=== PATIENT | female | born 1970 | race Caucasian/White ===

== ENCOUNTER 2018-06-28 14:32 | Emergency (ER) | payer MEDICAID ==
[2018-06-28 14:54] VITALS: BP 144/87
[2018-06-28 15:23] LABS: BILIRUBIN,URINE NEGATIVE (NEGATIVE); GLUCOSE, URINE (UA) NEGATIVE (NEGATIVE); KETONES,URINE (UA) NEGATIVE (NEGATIVE); LEUKOCYTE ESTERASE, URINE NEGATIVE (NEGATIVE); NITRITE,URINE NEGATIVE (NEGATIVE); OCCULT BLOOD,URINE SMALL (NEGATIVE); PROTEIN,URINE NEGATIVE (NEGATIVE); UROBILINOGEN,URINE 0.2 (NORMAL) E.U./dL (NORMAL)
[2018-06-28 15:24] LABS: CLARITY,URINE CLEAR (CLEAR)
[2018-06-28 15:31] LABS: BACTERIA,URINE Rare /HPF (None Seen); RBC,URINE 0-5 /HPF (0-5); SQUAMOUS EPITHELIAL CELL,UR FEW Squamous (<= Few)
[2018-06-28] MEDS ORDERED: SULFAMETH/TRIMETH DS 800/160 MG TABLET PO STA (15:58)
--- NOTE | 2018-06-28 16:00 | ED Physician Documentation ---
PD HPI FEMALE - Stated complaint Stated Complaint: FEM /BACK PX - Chief complaint Chief Complaint: UTI - History obtained from History obtained from: Patient - History of Present Illness Timing - onset: Other (2 days of foul-smelling urine, urethral burning with urination and frequency with mild left flank pain. She is nauseous but is always nauseous because of a chronic issue, really unchanged.) Review of Systems Constitutional: denies: Fever, Chills GI: denies: Abdominal Pain, Nausea, Vomiting : reports: Dysuria, Frequency PD PAST MEDICAL HISTORY - Past Medical History Cardiovascular: Hypertension Respiratory: COPD GI: Cholelithiasis : Kidney stones Musculoskeletal: Fibromyalgia - Past Surgical History Past Surgical History: Yes Ortho: Carpal Tunnel surgery /B[employer]ER [employer] TACKER: Hysterectomy, Oophrectomy, Mastectomy HEENT: Tonsil/Adenoidectomy - Present Medications Home Medications: Ambulatory Orders Medication Instructions Recorded Confirmed Albuterol [Ventolin Hfa] 2 puffs INH Q6H 11/01/13 05/20/17 Diphenhydramine HCl [Benadryl] 25 mg PO DAILY 05/17/15 05/20/17 Fluticasone [Flonase] 1 spray INH DAILY 05/17/15 05/20/17 Ibuprofen 400 mg PO DAILY 05/17/15 05/20/17 Omeprazole [PriLOSEC] 20 mg PO DAILY 05/17/15 05/20/17 traMADol [Ultram] 50 mg PO DAILY 05/17/15 05/20/17 Albuterol Sulfate [Proair Hfa 8.5 gm IH QID #1 hfa.aer.ad 08/28/15 05/20/17 Inhaler] Ipratropium [Atrovent] 1 puffs PO DAILY 05/20/17 05/20/17 prednisoLONE 1% OPHTH DROPS [Pred 1 drops OPTH QID #1 bottle 05/20/17 Forte 1% Ophth Drops] Ondansetron Odt [Zofran] 4 mg TL Q6H PRN #10 tablet 06/28/18 Sulfamethoxazole/Trimethoprim 1 each PO BID #14 tablet 06/28/18 [Sulfamethoxazole-Tmp Ds Tablet] - Allergies Allergies/Adverse Reactions: Allergies Allergy/AdvReac Type Severity Reaction Status Date / Time acetaminophen [From Percocet] Allergy Intermediate Edema Verified 06/28/18 14:54 bupropion HCl * Allergy Intermediate Respiratory Verified 06/28/18 14:54 [From Wellbutrin] codeine phosphate * Allergy Intermediate Emesis Verified 06/28/18 14:54 [From Tylenol-Codeine #3] duloxetine HCl * Allergy Intermediate Hives Verified 06/28/18 14:54 [From Cymbalta] hydrocodone bitartrate * Allergy Intermediate Edema Verified 06/28/18 14:54 [From Vicodin] oxycodone HCl * Allergy Intermediate Edema Verified 06/28/18 14:54 [From Percocet] aripiprazole [From Abilify] Allergy Unknown Verified 06/28/18 14:54 - Social History Does the pt smoke?: No Smoking Status: Never smoker Does the pt drink ETOH?: No Does the pt have substance abuse?: No - Immunizations Immunizations are current?: Yes - POLST Patient has POLST: No PD ED PE NORMAL - Vitals Vital signs reviewed: Yes - General General: Alert and oriented X 3, No acute distress - Abdomen Abdomen: Normal bowel sounds, Soft, Non tender - Back Back: No CVA TTP - Neuro Neuro: Alert and oriented X 3, Normal speech Results - Vitals Vitals: Vital Signs - 24 hr 06/28/18 14:48 Temperature 36.4 C L Heart Rate 85 Respiratory 20 Rate Blood Pressure 144/87 H O2 Saturation 96 Oxygen O2 Source Room air - Labs Labs: Laboratory Tests 06/28/18 14:55 Urine Color YELLOW Urine Clarity CLEAR Urine pH 7.0 Ur Specific [place] <=1.005 Urine Protein NEGATIVE Urine Glucose (UA) NEGATIVE Urine Ketones NEGATIVE Urine Occult Blood SMALL H Urine Nitrite NEGATIVE Urine Bilirubin NEGATIVE Urine Urobilinogen 0.2 (NORMAL) Ur Leukocyte Esterase NEGATIVE Urine RBC 0-5 Urine WBC 0-3 Ur Squamous Epith Cells FEW Squamous Urine Bacteria Rare Ur Microscopic Review INDICATED Urine Culture Comments NOT INDICATED PD MEDICAL DECISION MAKING - ED course ED course: She has a really unremarkable urine with trace blood, but it is pretty dilute and her symptoms point directly to UTI. Departure - Departure Disposition: 01 Home, Self Care Clinical Impression: Urinary tract infection Qualifiers: Urinary tract infection type: acute pyelonephritis Qualified Code(s): N10 - Acute pyelonephritis Condition: Good Record reviewed to determine appropriate education?: Yes Instructions: ED UTI Cystitis Female Prescriptions: Ondansetron Odt [Zofran] 4 mg TL Q6H PRN #10 tablet PRN Reason: Nausea / Vomiting Sulfamethoxazole/Trimethoprim [Sulfamethoxazole-Tmp Ds Tablet] 1 each PO BID #14 tablet Comments: Your blood pressure was elevated today on check into the emergency department. This does not mean that you have hypertension, it is a common phenomenon to come to the emergency department and have elevated blood pressure. I recommend that you see your primary care physician within the week to have it rechecked when you are feeling better.
== END 2018-06-28 16:05 | disposition home or self-care (01) ==
LOC: ED 14:32
DX: N10 Acute pyelonephritis (principal); I10 Essential (primary) hypertension; M79.7 Fibromyalgia
CPT/HCPCS: 81001; 99283; A9270; 81003; 87086

== ENCOUNTER 2019-05-08 14:21 | Outpatient (CLI) | payer MEDICARE, MEDICAID | END 2019-05-08 14:22 | disposition critical access hospital (66) | LOC: EMS 14:21 | PROVIDERS: ATTEND Surgery | DX: R07.89 Other chest pain (principal) | CPT/HCPCS: A0425; A0427 ==

== ENCOUNTER 2019-05-08 15:30 | Emergency (ER) | payer MEDICARE, MEDICAID ==
[2019-05-08] MEDS ORDERED: KETOROLAC 30 MG/ML VIAL IVP STA (15:40)
[2019-05-08] MEDS ORDERED: HYDROmorphone 1 MG/ML CARPUJECT IVP STA (15:40)
--- NOTE | 2019-05-08 15:42 | ED Physician Documentation ---
PD HPI CHEST PAIN - Stated complaint Stated Complaint: CP - History obtained from History obtained from: Patient, EMS - History of Present Illness Timing - onset: Today (48-year-old woman with history of migraines had a headache for a couple of days. Yesterday she was sweaty. Today she started to develop substernal chest pressure radiating to the neck but not the back starting around 1030 this morning. She continues to be sweaty. She denies shortness of breath but has an odd feeling in her lungs like she cannot take a deep breath. There is no recent travel or calf pain. No history of DVT or PE or heart disease, but heart disease runs in the family. Risk factors include obesity, and she quit smoking at age 31.) - Treatment prior to arrival Treatment prior to arrival: She received aspirin and nitroglycerin in route, it did not help the chest pain but the nitroglycerin made her headache worse. Prehospital EKG was reviewed and it was completely nonischemic. Review of Systems Ten Systems: 10 systems reviewed and negative Constitutional: denies: Fever, Chills Throat: denies: Dental pain / toothache Cardiac: denies: Palpitations, Pedal edema, Calf pain Respiratory: reports: Cough (v mild). 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 HEENT: Tonsil/Adenoidectomy - Present Medications Home Medications: Ambulatory Orders Medication Instructions Recorded Confirmed Albuterol [Ventolin Hfa] 2 puffs INH Q6H 11/01/13 05/20/17 Diphenhydramine HCl [Benadryl] 25 mg PO DAILY 05/17/15 05/20/17 Fluticasone [Flonase] 1 spray INH DAILY 05/17/15 05/20/17 Ibuprofen 400 mg PO DAILY 05/17/15 05/20/17 Omeprazole [PriLOSEC] 20 mg PO DAILY 05/17/15 05/20/17 traMADol [Ultram] 50 mg PO DAILY 05/17/15 05/20/17 Albuterol Sulfate [Proair Hfa 8.5 gm IH QID #1 hfa.aer.ad 08/28/15 05/20/17 Inhaler] Ipratropium [Atrovent] 1 puffs PO DAILY 05/20/17 05/20/17 prednisoLONE 1% OPHTH DROPS [Pred 1 drops OPTH QID #1 bottle 05/20/17 Forte 1% Ophth Drops] Ondansetron Odt [Zofran] 4 mg TL Q6H PRN #10 tablet 06/28/18 Sulfamethoxazole/Trimethoprim 1 each PO BID #14 tablet 06/28/18 [Sulfamethoxazole-Tmp Ds Tablet] - Allergies Allergies/Adverse Reactions: Allergies Allergy/AdvReac Type Severity Reaction Status Date / Time acetaminophen [From Percocet] Allergy Intermediate Edema Verified 05/08/19 15:42 bupropion HCl * Allergy Intermediate Respiratory Verified 05/08/19 15:42 [From Wellbutrin] codeine phosphate * Allergy Intermediate Emesis Verified 05/08/19 15:42 [From Tylenol-Codeine #3] duloxetine HCl * Allergy Intermediate Hives Verified 05/08/19 15:42 [From Cymbalta] hydrocodone bitartrate * Allergy Intermediate Edema Verified 05/08/19 15:42 [From Vicodin] oxycodone HCl * Allergy Intermediate Edema Verified 05/08/19 15:42 [From Percocet] aripiprazole [From Abilify] Allergy Unknown Verified 05/08/19 15:42 - Social History Does the pt smoke?: No Smoking Status: Never smoker Does the pt drink ETOH?: No Does the pt have substance abuse?: No - Immunizations Immunizations are current?: Yes - POLST Patient has POLST: No PD ED PE NORMAL - Vitals Vital signs reviewed: Yes - General General: Alert and oriented X 3, No acute distress - HEENT HEENT: PERRL, EOMI - Neck Neck: Supple, no meningeal sign, No bony TTP - Cardiac Cardiac: RRR, No murmur - Respiratory Respiratory: No respiratory distress, Clear bilaterally - Abdomen Abdomen: Soft, Non tender - Back Back: No CVA TTP, No spinal TTP - Derm Derm: Normal color, Warm and dry - Extremities Extremities: No edema, No calf tenderness / cord - Neuro Neuro: Alert and oriented X 3, Normal speech Results - Vitals Vitals: Vital Signs - 24 hr 05/08/19 05/08/19 05/08/19 15:33 16:13 16:59 Temperature 36.5 C Heart Rate 78 80 76 Respiratory 20 18 16 Rate Blood Pressure 130/96 H 116/81 H 104/73 O2 Saturation 100 99 97 05/08/19 18:40 Temperature Heart Rate 77 Respiratory 19 Rate Blood Pressure 130/90 H O2 Saturation 100 Oxygen O2 Source Room air - EKG (time done) 1537 Rate: Rate (enter#) (75) Rhythm: NSR [place]: Normal Intervals: Normal [place] QRS: Normal Ischemia: Normal ST segments Computer interpretation: Agree with computer - Labs Labs: Laboratory Tests 05/08/19 05/08/19 05/08/19 15:48 15:48 15:48 WBC 6.9 RBC 4.42 Hgb 13.6 Hct 40.9 MCV 92.5 MCH 30.8 MCHC 33.3 RDW 12.4 Plt Count 231 MPV 10.2 Neut # (Auto) 4.0 Lymph # (Auto) 2.1 [place] # (Auto) 0.5 Eos # (Auto) 0.2 Baso # (Auto) 0.0 Absolute Nucleated RBC 0.00 Nucleated RBC % 0.0 Sodium 140 Potassium 3.6 Chloride 104 Carbon Dioxide 29 Anion Gap 7.0 BUN 18 Creatinine 0.9 Estimated GFR (MDRD) 66 L Glucose 105 H Calcium 9.0 Total Bilirubin 0.6 AST 14 ALT 17 Alkaline Phosphatase 68 Troponin I High Sens < 2.3 L Total Protein 6.5 L Albumin 4.0 Globulin 2.5 Albumin/Globulin Ratio 1.6 Lipase 32 05/08/19 18:36 WBC RBC Hgb Hct MCV MCH MCHC RDW Plt Count MPV Neut # (Auto) Lymph # (Auto) [place] # (Auto) Eos # (Auto) Baso # (Auto) Absolute Nucleated RBC Nucleated RBC % Sodium Potassium Chloride Carbon Dioxide Anion Gap BUN Creatinine Estimated GFR (MDRD) Glucose Calcium Total Bilirubin AST ALT Alkaline Phosphatase Troponin I High Sens < 2.3 L Total Protein Albumin Globulin Albumin/Globulin Ratio Lipase PD MEDICAL DECISION MAKING - ED course ED course: 48-year-old woman presents with atypical chest pain, headache, exam is unrema rkable. Her EKG is completely nonischemic. 2 troponins were done the department and both negative and undetectable. Departure - Departure Disposition: 01 Home, Self Care Clinical Impression: Chest pain Qualifiers: Chest pain type: unspecified Qualified Code(s): R07.9 - Chest pain, unspecified Condition: Good Record reviewed to determine appropriate education?: Yes Instructions: ED Chest Pain Atypical Unkn Cause Comments: Follow-up with your doctor, next available appointment. Discuss stress testing. Return for new or worsening symptoms. Take a baby aspirin a day until you follow-up.
[2019-05-08 15:52] LABS: BASOPHILS % (AUTO) 0.6 %; EOSINOPHILS # (AUTO) 0.2 10^3/uL (0.0-0.7); EOSINOPHILS % (AUTO) 3.4 %; HGB - HEMOGLOBIN 13.6 g/dL (12.0-16.0); LYMPHOCYTES # (AUTO) 2.1 10^3/uL (1.5-3.5); LYMPHOCYTES % (AUTO) 30.8 %; MEAN CORPUSCULAR HEMOGLOBIN 30.8 pg (27.0-31.0); MEAN CORPUSCULAR HGB CONC 33.3 g/dL (32.0-36.0); MEAN CORPUSCULAR VOLUME 92.5 fL (81.0-99.0); MEAN PLATELET VOLUME 10.2 fL (7.9-10.8); MONOCYTES # (AUTO) 0.5 10^3/uL (0.0-1.0); MONOCYTES % (AUTO) 7.1 %; NEUTROPHILS % (AUTO) 57.7 %; PLT - PLATELET COUNT 231 10^3/uL (130-450); RED BLOOD COUNT 4.42 10^6/uL (4.20-5.40); RED CELL DISTRIBUTION WIDTH 12.4 % (12.0-15.0); WHITE BLOOD COUNT 6.9 x10^3/uL (4.8-10.8)
[2019-05-08 16:04] LABS: ALBUMIN/GLOBULIN RATIO 1.6 (1.0-2.2); BILIRUBIN,TOTAL 0.6 mg/dL (0.2-1.0); CREATININE 0.9 mg/dL (0.4-1.0); TOTAL PROTEIN 6.5 g/dL (6.7-8.2)
--- NOTE | 2019-05-08 16:18 | XRAY Report ---
Reason: chest pain Procedure Date: 05/08/2019 Accession Number: [id number] / [id number] Procedure: XR - Chest 1 View X-Ray CPT Code: 65352 FULL RESULT: EXAM: CHEST RADIOGRAPHY EXAM DATE: 05/08/2019 03:54 PM. CLINICAL HISTORY: Chest pain. History of breast cancer. COMPARISON: CHEST 2 VIEW PA/LAT 05/17/2015 2:48 PM. TECHNIQUE: 1 view. FINDINGS: Lungs/Pleura: No focal opacities evident. No pleural effusion. No pneumothorax. Mediastinum: Heart size and mediastinal contour are within normal limits. Other: None. IMPRESSION: 1. No acute disease in the chest. RADIA
[2019-05-08 19:17] VITALS: BP 128/75
== END 2019-05-08 19:17 | disposition home or self-care (01) ==
LOC: EDUNIT# → ED 15:30
DX: R07.89 Other chest pain (principal); R51 Headache; M54.2 Cervicalgia; R61 Generalized hyperhidrosis; I10 Essential (primary) hypertension; E66.9 Obesity, unspecified; Z87.891 Personal history of nicotine dependence; Z82.49 Family history of ischemic heart disease and other diseases of the circulatory system
CPT/HCPCS: 36415; 71045; 80053; 83690; 84484; 85025; 93005; 96374; 99284; J1170

== ENCOUNTER 2020-10-23 15:08 | Emergency (ER) | payer MEDICARE, MEDICAID ==
--- OUTSIDE RECORDS SUMMARY | 2020-10-23 15:35 | EXTERNAL MEDICAL SUMMARY RPT | Continuity of Care Document ---
:1970 Demographics Phone Unavailable Preferred Language Unknown Marital Status Unknown Rastafari Affiliation Unknown Race Unknown Ethnic Group Unknown Author Organization [facility] Address [address] [phone] Phone Social History date description facility [id number]
--- NOTE | 2020-10-23 15:51 | XRAY Report ---
PROCEDURE: Chest 2 View X-Ray INDICATIONS: cough TECHNIQUE: 2 view(s) of the chest. COMPARISON: 05/08/2019, 05/17/2015 FINDINGS: Surgical changes and devices: None. Lungs and pleura: No pleural effusions or pneumothorax. Lungs are clear, yet mildly hyperexpanded. Mediastinum: Mediastinal contours are normal. Heart size is normal. Bones and chest wall: Age-appropriate degenerative changes are seen. No suspicious bony abnormalit ies. Soft tissues appear unremarkable. IMPRESSION: Hyperexpanded lungs are seen, without an acute cardiopulmonary abnormality seen. No focal infiltrates are seen. Reviewed by: Nabeel Whipple MD on 10/23/2020 2:50 PM [facility] Approved by: Nabeel Whipple MD on 10/23/2020 2:50 PM [facility] Station ID: [id number]
[2020-10-23] MEDS ORDERED: IPRATROPIUM/ALBUTEROL 3 ML NEB INH STA (15:55)
[2020-10-23] MEDS ORDERED: PSEUDOEPHEDRINE 30 MG TABLET PO STA (15:55)
[2020-10-23] MEDS ORDERED: predniSONE 20 MG TABLET PO STA (15:55)
--- NOTE | 2020-10-23 16:23 | ED Physician Documentation ---
History of Present Illness - Stated complaint Stated Complaint: COUGHING,FEVER,SINUS PRESSURE - Chief complaint Chief Complaint: Resp - History obtained from History obtained from: Patient - History of Present Illness Timing: How many weeks ago (1) Pain level max: 0 Pain level now: 0 - Additonal information Additional information: Is a 50-year-old female who presents to the emergency department with cough and congestion for the past week. She states that she saw her doctor and had pneumonia on chest x-ray. She states that she was placed on azithromycin, completed this and is about to finish her Augmentin course. She states she is still having difficulty breathing and coughing up yellow phlegm. No fevers. No chills. Negative Covid test 5 days ago. She continues to smoke. Has a history of COPD. Continues to have wheezing, especially at night. Was not placed on a steroid taper. Currently uses a Symbicort inhaler and uses albuterol up to 4 times a day. Does not use a spacer. Review of Systems Constitutional: denies: Fever, Chills Nose: reports: Rhinorrhea / runny nose, Congestion, Sinus pressure / pain Throat: denies: Sore throat Cardiac: denies: Chest pain / pressure Respiratory: reports: Dyspnea, Cough, Wheezing. 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 HEENT: Tonsil/Adenoidectomy - Present Medications Home Medications: Ambulatory Orders Medication Instructions Recorded Confirmed Albuterol [Ventolin Hfa] 2 puffs INH Q6H 11/01/13 10/23/20 Ibuprofen 400 mg PO DAILY PRN 05/17/15 10/23/20 Omeprazole [PriLOSEC] 20 mg PO DAILY 05/17/15 10/23/20 diphenhydrAMINE HCl [Benadryl] 25 mg PO DAILY PRN 05/17/15 10/23/20 traMADol [Ultram] 50 mg PO DAILY 05/17/15 10/23/20 Ipratropium [Atrovent] 1 puffs PO DAILY 05/20/17 10/23/20 Ondansetron Odt [Zofran] 4 mg TL Q6H PRN #10 tablet 06/28/18 10/23/20 Sulfamethoxazole/Trimethoprim 1 each PO BID #14 tablet 06/28/18 10/23/20 [Sulfamethoxazole-Tmp Ds Tablet] Cetirizine HCl/Pseudoephedrine 1 each PO BID PRN #30 ea 10/23/20 [Zyrtec-D Tablet] predniSONE [Deltasone] 10 mg PO [id number] #42 tab 10/23/20 - Allergies Allergies/Adverse Reactions: Allergies Allergy/AdvReac Type Severity Reaction Status Date / Time acetaminophen [From Percocet] Allergy Intermediate Edema Verified 10/23/20 15:14 bupropion HCl * Allergy Intermediate Respiratory Verified 10/23/20 15:14 [From Wellbutrin] codeine phosphate * Allergy Intermediate Emesis Verified 10/23/20 15:14 [From Tylenol-Codeine #3] duloxetine HCl * Allergy Intermediate Hives Verified 10/23/20 15:14 [From Cymbalta] hydrocodone bitartrate * Allergy Intermediate Edema Verified 10/23/20 15:14 [From Vicodin] oxycodone HCl * Allergy Intermediate Edema Verified 10/23/20 15:14 [From Percocet] aripiprazole [From Abilify] Allergy Unknown Verified 10/23/20 15:14 - Social History Does the pt smoke?: No Smoking Status: Former smoker Does the pt drink ETOH?: No Does the pt have substance abuse?: No - Immunizations Immunizations are current?: Yes - POLST Patient has POLST: No PD ED PE NORMAL - Vitals Vital signs reviewed: Yes - General General: Alert and oriented X 3, No acute distress, Well developed/nourished - HEENT HEENT: PERRL, Moist mucous membranes - Neck Neck: Supple, no meningeal sign - Cardiac Cardiac: RRR - Respiratory Respiratory: No respiratory distress, Other (Diminished breath sounds and wheezing bilaterally. Prolonged expiratory wheeze) - Abdomen Abdomen: Soft, Non tender, Non distended - Derm Derm: Warm and dry - Extremities Extremities: No edema - Neuro Neuro: Alert and oriented X 3 - Psych Psych: Normal mood, Normal affect Results - Vitals Vitals: Vital Signs - 24 hr 10/23/20 10/23/20 10/23/20 15:15 16:12 16:34 Temperature 37.1 C 36.5 C Heart Rate 80 82 88 Respiratory 20 20 20 Rate Blood Pressure 159/79 H 158/96 H O2 Saturation 97 96 Oxygen O2 Source Room air - Rads (name of study) Chest x-ray Radiology: Prelim report reviewed, EMP read contemporaneously, See rad report (Hyperexpanded lungs are seen, without an acute cardiopulmonary abnormality seen. No focal infiltrates are seen. ) PD MEDICAL DECISION MAKING - ED course Complexity details: reviewed results, re-evaluated patient, considered differential, d/w patient ED course: 50-year-old female with what appears to be a COPD exacerbation. No evidence of recurrent or ongoing pneumonia. We will have her finish her Augmentin. Will place on a steroid taper for home. We will also place on decongestants. Patient is well-appearing, nontoxic. Afebrile. No hypoxia or respiratory distress. Patient counseled regarding signs and symptoms for which I believe and urgent re-evaluation would be necessary. Patient with good understanding of and agreement to plan and is comfortable going home at this time This document was made in part using voice recognition software. While efforts are made to proofread this document, sound alike and grammatical errors may occur. Departure - Departure Disposition: 01 Home, Self Care Clinical Impression: COPD exacerbation Condition: Good Instructions: ED COPD Flare Follow-Up: LISA PEREZ MD [Primary Care Provider] - Within 1 week Prescriptions: predniSONE [Deltasone] 10 mg PO [id number] #42 tab Cetirizine HCl/Pseudoephedrine [Zyrtec-D Tablet] 1 each PO BID PRN #30 ea PRN Reason: nasal congestion Comments: Please finish the Augmentin as previously prescribed. Your x-ray does not show any evidence of pneumonia today. We will place you on a steroid taper and decongestants for home. Follow-up with your doctor for further care. Continue to use the albuterol with a spacer at least 4 times a day.
[2020-10-23 16:35] VITALS: BP 158/96
== END 2020-10-23 16:42 | disposition home or self-care (01) ==
LOC: ED 15:08
DX: J44.1 Chronic obstructive pulmonary disease with (acute) exacerbation (principal); F17.200 Nicotine dependence, unspecified, uncomplicated; I10 Essential (primary) hypertension; E11.42 Type 2 diabetes mellitus with diabetic polyneuropathy
CPT/HCPCS: 71046; 94640; 94664; 99283; 99284; A9270; J7512

== ENCOUNTER 2020-11-23 15:09 | Outpatient (CLI) | payer MEDICARE, MEDICAID ==
--- NOTE | 2020-11-23 16:58 | XRAY Report ---
PROCEDURE: Chest 2 View X-Ray INDICATIONS: PERSISTENT ASTHMA W/ACUTE EXACERBATION TECHNIQUE: 2 view(s) of the chest. COMPARISON: Chest x-ray 10/23/2020. FINDINGS: Surgical changes and devices: None. Lungs and pleura: No pleural effusions or pneumothorax. Lungs are clear. Mediastinum: Mediastinal contours are normal. Heart size is normal. Bones and chest wall: No suspicious bony abnormalities. Soft tissues appear unremarkable. IMPRESSION: No acute pulmonary process. Reviewed by: Shabana Valladares MD on 11/23/2020 4:57 PM PDT Approved by: Shabana Valladares MD on 11/23/2020 4:57 PM PDT Station ID: [id number]
== END 2020-11-23 15:10 | disposition home or self-care (01) ==
LOC: DI.S 15:09
PROVIDERS: ATTEND Internal Medicine
DX: Z09 Encounter for follow-up examination after completed treatment for conditions other than malignant neoplasm (principal); Z87.01 Personal history of pneumonia (recurrent); J45.41 Moderate persistent asthma with (acute) exacerbation

== ENCOUNTER 2021-07-01 15:00 | Outpatient (CLI) | payer MEDICARE, MEDICAID ==
[2021-07-01 22:21] LABS: BILIRUBIN,URINE NEGATIVE (NEGATIVE); GLUCOSE, URINE (UA) NEGATIVE (NEGATIVE); KETONES,URINE (UA) NEGATIVE (NEGATIVE); LEUKOCYTE ESTERASE, URINE NEGATIVE (NEGATIVE); NITRITE,URINE NEGATIVE (NEGATIVE); OCCULT BLOOD,URINE MODERATE (NEGATIVE); PH,URINE 6.5 PH (5.0-7.5); PROTEIN,URINE NEGATIVE (NEGATIVE); UROBILINOGEN,URINE 0.2 (NORMAL) E.U./dL (NORMAL)
[2021-07-01 22:28] LABS: BACTERIA,URINE None Seen /HPF (None Seen); CLARITY,URINE CLEAR (CLEAR); SQUAMOUS EPITHELIAL CELL,UR RARE Squamous (<= Few); WBC,URINE 0-3 /HPF (0-5)
[2021-07-01 23:04] LABS: BACTERIAL VAGINOSIS DNA POSITIVE (NEGATIVE); CANDIDA GLABRATA DNA NEGATIVE (NEGATIVE); CANDIDA GROUP DNA NEGATIVE (NEGATIVE); CANDIDA KRUSEI DNA NEGATIVE (NEGATIVE); TRICHOMONAS VAGINALIS DNA NEGATIVE (NEGATIVE)
== END 2021-07-01 23:59 | disposition home or self-care (01) ==
LOC: LAB.S 15:00
PROVIDERS: ATTEND Emergency Medicine
DX: R30.0 Dysuria (principal)
CPT/HCPCS: 81001; 87086; 87661; 87801

== ENCOUNTER 2021-11-03 08:00 | Outpatient (CLI) | payer MEDICARE, MEDICAID ==
[2021-11-03 16:15] LABS: THYROID STIMULATING HORMONE 1.11 uIU/mL (0.34-5.60)
== END 2021-11-03 23:59 | disposition home or self-care (01) ==
LOC: LAB.S 08:00
PROVIDERS: ATTEND Registered Nurse
DX: R07.89 Other chest pain (principal)
CPT/HCPCS: 36415; 84443; 84484

== ENCOUNTER 2022-12-21 10:12 | Outpatient (CLI) | payer MEDICARE, MEDICAID ==
[2022-12-21 14:42] LABS: BASOPHILS # (AUTO) 0.1 10^3/uL (0.0-0.1); BASOPHILS % (AUTO) 0.7 %; EOSINOPHILS # (AUTO) 0.3 10^3/uL (0.0-0.7); EOSINOPHILS % (AUTO) 4.5 %; HCT - HEMATOCRIT 43.8 % (37.0-47.0); HGB - HEMOGLOBIN 14.3 g/dL (12.0-16.0); LYMPHOCYTES # (AUTO) 1.9 10^3/uL (1.5-3.5); LYMPHOCYTES % (AUTO) 28.1 %; MEAN CORPUSCULAR HEMOGLOBIN 30.2 pg (27.0-31.0); MEAN CORPUSCULAR HGB CONC 32.6 g/dL (32.0-36.0); MEAN CORPUSCULAR VOLUME 92.6 fL (81.0-99.0); MEAN PLATELET VOLUME 10.4 fL (7.9-10.8); MONOCYTES # (AUTO) 0.6 10^3/uL (0.0-1.0); MONOCYTES % (AUTO) 9.3 %; NEUTROPHILS % (AUTO) 57.1 %; PLT - PLATELET COUNT 264 10^3/uL (130-450); RED BLOOD COUNT 4.73 10^6/uL (4.20-5.40); RED CELL DISTRIBUTION WIDTH 12.9 % (12.0-15.0); WHITE BLOOD COUNT 6.9 x10^3/uL (4.8-10.8)
[2022-12-21 15:11] LABS: THYROID STIMULATING HORMONE 1.34 uIU/mL (0.34-5.60)
[2022-12-21 15:13] LABS: ALBUMIN/GLOBULIN RATIO 1.3 (1.0-2.2); BILIRUBIN,TOTAL 0.5 mg/dL (0.2-1.0); CALCIUM 9.5 mg/dL (8.5-10.3); CREATININE 0.9 mg/dL (0.4-1.0); POTASSIUM 4.1 mmol/L (3.5-5.0)
[2022-12-21 15:15] LABS: FERRITIN 39.7 ng/mL (11.0-306.8)
== END 2022-12-21 10:13 | disposition home or self-care (01) ==
LOC: LAB.S 10:12
PROVIDERS: ATTEND Internal Medicine
DX: R20.9 Unspecified disturbances of skin sensation (principal); R53.83 Other fatigue
CPT/HCPCS: 36415; 80053; 82728; 84443; 85025

== ENCOUNTER 2023-08-07 16:11 | Outpatient (CLI) | payer MEDICARE, MEDICAID ==
[2023-08-07 21:12] LABS: BASOPHILS # (AUTO) 0.1 10^3/uL (0.0-0.1); BASOPHILS % (AUTO) 0.7 %; EOSINOPHILS # (AUTO) 0.3 10^3/uL (0.0-0.7); HGB - HEMOGLOBIN 13.9 g/dL (12.0-16.0); LYMPHOCYTES # (AUTO) 2.9 10^3/uL (1.5-3.5); LYMPHOCYTES % (AUTO) 31.3 %; MEAN CORPUSCULAR HEMOGLOBIN 30.1 pg (27.0-31.0); MEAN CORPUSCULAR HGB CONC 32.3 g/dL (32.0-36.0); MEAN CORPUSCULAR VOLUME 93.1 fL (81.0-99.0); MEAN PLATELET VOLUME 10.8 fL (7.9-10.8); MONOCYTES # (AUTO) 0.8 10^3/uL (0.0-1.0); MONOCYTES % (AUTO) 8.5 %; NEUTROPHILS # (AUTO) 5.2 10^3/uL (1.5-6.6); NEUTROPHILS % (AUTO) 56.3 %; PLT - PLATELET COUNT 316 10^3/uL (130-450); RED BLOOD COUNT 4.62 10^6/uL (4.20-5.40); RED CELL DISTRIBUTION WIDTH 13.1 % (12.0-15.0); WHITE BLOOD COUNT 9.2 x10^3/uL (4.8-10.8)
[2023-08-07 21:33] LABS: ALBUMIN 4.1 g/dL (3.2-5.5); ALBUMIN/GLOBULIN RATIO 1.6 (1.0-2.2); BILIRUBIN,TOTAL 0.3 mg/dL (0.2-1.0); CALCIUM 9.6 mg/dL (8.5-10.3); CREATININE 0.8 mg/dL (0.6-1.3); POTASSIUM 3.8 mmol/L (3.5-4.5); TOTAL PROTEIN 6.7 g/dL (6.4-8.9)
== END 2023-08-07 16:12 | disposition home or self-care (01) ==
LOC: LAB.N 16:11
PROVIDERS: ATTEND Physician Assistant
DX: C50.811 Malignant neoplasm of overlapping sites of right female breast (principal); Z17.0 Estrogen receptor positive status [ER+]; Z79.811 Long term (current) use of aromatase inhibitors; M85.88 Other specified disorders of bone density and structure, other site
CPT/HCPCS: 36415; 80053; 85025; 86300

== ENCOUNTER 2023-08-13 07:00 | Outpatient (CLI) | payer MEDICARE, MEDICAID ==
--- NOTE | 2023-08-13 18:13 | XRAY Report ---
PROCEDURE: Chest 2V INDICATIONS: ACUTE COUGH TECHNIQUE: 2 views of the chest were acquired. COMPARISON: Chest x-ray 11/23/2020 FINDINGS: Surgical changes and devices: None. Lungs and pleura: No pleural effusions or pneumothorax. Lungs are clear. Mediastinum: Mediastinal contours appear normal. Heart size is normal. Bones and chest wall: No suspicious bony lesions. Overlying soft tissues appear unremarkable. IMPRESSION: No acute cardiopulmonary process. Reviewed by: Shabana Valladares MD on 08/13/2023 6:11 PM [facility] Approved by: Shabana Valladares MD on 08/13/2023 6:11 PM [facility] Station ID: [id number]
== END 2023-08-13 23:59 | disposition home or self-care (01) ==
LOC: DI.S 07:00
PROVIDERS: ATTEND Registered Nurse
DX: R06.09 Other forms of dyspnea (principal); R05.1 Acute cough

== ENCOUNTER 2023-08-23 12:50 | Outpatient (CLI) | payer MEDICARE, MEDICAID ==
--- NOTE | 2023-08-23 19:00 | CT Report ---
PROCEDURE: Sinus INDICATIONS: SINUSITIS TECHNIQUE: Noncontrast 3.0 mm axial images acquired from the frontal sinuses to the mid-sella, with coronal and sagittal reformats. For radiation dose reduction, the following was used: automated exposure control , adjustment of mA and/or kV according to patient size. COMPARISON: None. FINDINGS: Image quality: Excellent. Maxillary Sinuses: No bony remodeling or destruction. Sinuses are clear. Ethmoid Air Cells: No bony remodeling or destruction. Sinuses are clear. Sphenoid Sinuses: No bony remodeling or destruction. Sinuses are clear. Frontal Sinuses: No bony remodeling or destruction. Sinuses are clear. Ostiomeatal Complexes: Ostiomeatal complexes are patent. No Vicky cells. Miscellaneous: Visualized intra-orbital contents are normal. There is a small right-sided ben bu llosa. There is mild leftward nasal septal deviation. IMPRESSION: No significant active paranasal sinus disease can be seen. Reviewed by: Nabeel Whipple MD on 08/23/2023 5:59 PM [place] Approved by: Nabeel Whipple MD on 08/23/2023 5:59 PM [facility] Station ID: [id number]
== END 2023-08-23 12:51 | disposition home or self-care (01) ==
LOC: DI 12:50
PROVIDERS: ATTEND Physician Assistant Medical
DX: J32.9 Chronic sinusitis, unspecified (principal); R09.82 Postnasal drip

== ENCOUNTER 2023-11-09 08:00 | Outpatient (CLI) | payer MEDICARE, MEDICAID | END 2023-11-09 23:59 | disposition home or self-care (01) | LOC: LAB.WCP 08:00 | PROVIDERS: ATTEND Urology | DX: Z87.442 Personal history of urinary calculi (principal) | CPT/HCPCS: 87086 ==

== ENCOUNTER 2023-11-27 11:15 | Outpatient (CLI) | payer MEDICARE, MEDICAID ==
--- NOTE | 2023-11-27 14:47 | CT Report ---
PROCEDURE: Abdomen/Pelvis WO INDICATIONS: HIST OF KIDNEY STONES TECHNIQUE: A CT scan of the abdomen and pelvis was performed without the use of intravenous contrast. Images we re recorded and evaluated at appropriate window settings. Reformats: coronal and sagittal. For radiat ion dose reduction, the following was used: automated exposure control, adjustment of mA and/or kV ac cording to patient size. COMPARISON: 01/22/2015 FINDINGS: Image quality: Significantly limited due to presence of barium within the colon causing significant a rtifact Lower chest: Lung bases appear unremarkable. Normal heart size where visualized. Liver: Within the limits of noncontrast evaluation, no contour deforming mass. Solid organs are not well evaluated on noncontrast technique. Suspected cysts are present. Gallbladder and biliary system: Underdistended, unremarkable Pancreas: No discrete pancreatic mass or ductal dilation Spleen: Nonenlarged Adrenals: No discrete nodules Kidneys: Scattered probable cysts. Nonobstructing left renal calculi are again seen, the largest at t he lower pole measuring up to 4 mm. No hydronephrosis. Vessels and lymph nodes: No pathologic lymph nodes by size criteria. No abdominal aortic aneurysm. Bowel and peritoneum: No evidence of small bowel obstruction or pathologic ascites. Barium is seen in the colon and rectum. There is significant surrounding streak artifact. Appendix is nondilated. Body wall: Unremarkable Pelvis: Bladder is unremarkable. Uterus is not seen Bones: Degenerative changes, no acute or suspicious findings. IMPRESSION: Limited CT due to presence of barium within large bowel and rectum, causing significant streak and be am hardening artifact. Similar burden of kidney stones in the left sided calyces without hydronephrosis, the largest in the lower pole measuring up to 4 mm. Other findings above. Reviewed by: Kyle Millard MD on 11/27/2023 2:45 PM PDT Approved by: Kyle Millard MD on 11/27/2023 2:45 PM PDT Station ID: [id number]
== END 2023-11-27 11:16 | disposition home or self-care (01) ==
LOC: DI 11:15
PROVIDERS: ATTEND Urology
DX: R30.0 Dysuria (principal); Z87.442 Personal history of urinary calculi; N20.0 Calculus of kidney

== ENCOUNTER 2023-12-17 08:23 | Day surgery (SDC) | payer MEDICARE, MEDICAID ==
[~2023-12-17 08:23] MED LIST: ceFAZolin 1 GM VIAL ONE; ceFAZolin 2 GM VIAL ONE
[2023-12-17] MEDS: LACTATED RINGERS 1,000 ML IV ONE ×2 (08:29→10:55)
[2023-12-17] MEDS: SCOPOLAMINE PATCH TOP SCH (09:04)
[2023-12-17] MEDS ORDERED: fentaNYL 100 MCG/2 ML VIAL ONE (09:12)
[2023-12-17] MEDS ORDERED: MIDAZOLAM 2 MG/2 ML VIAL ONE (09:12)
[2023-12-17] MEDS ORDERED: PROPOFOL 200 MG/20 ML VIAL IVP ONE (09:13)
[2023-12-17] MEDS ORDERED: LIDOCAINE-PF 2% 10 ML AMP SUBQ ONE (09:13)
[2023-12-17] MEDS ORDERED: ROCURONIUM 50 MG/5 ML VIAL ONE (10:03)
--- NOTE | 2023-12-17 10:03 | ANESTHESIA ---
Pre-Anesthesia VS, & Labs - Diagnosis left kidney stones - Procedure left ESWL Vital Signs: Temp Pulse Resp BP Pulse Ox O2 Flow Rate 36.2 C L 83 14 127/65 97 12/17/23 08:35 12/17/23 08:35 12/17/23 08:35 12/17/23 08:35 12/17/23 08:35 Height: 5 ft 6 in Weight (kg): 137 kg Body Mass Index: 48.7 BMI Classification: Morbidly Obese - NPO >8 hours - Is Patient ?: No Home Medications and Allergies Home Medications: Ambulatory Orders Albuterol Sulf [Ventolin Hfa Inhaler] 1 - 2 puffs INH Q4HR PRN 12/05/23 Anastrozole 1 mg PO DAILY 12/05/23 Ascorbate Calcium/Bioflavonoid [Tere-C 500 mg Tablet] 2 each PO DAILY 12/05/23 Aspirin [Aspirin EC] 81 mg PO DAILY 12/05/23 Baclofen 5 mg PO DAILY PRN 12/05/23 Biotin 10,000 mcg PO DAILY 12/05/23 Budesonide/Formoterol Fumarate [Symbicort 160-4.5 Mcg Inhaler] 2 puffs IH BID 12/05/23 Calcium Citrate/Vitamin D3 [Calcium Cit 315-Vit D3 250 Cpt] 2 each PO DAILY 12/05/23 Cholecalciferol [Vitamin D3] 5,000 unit PO DAILY 12/05/23 Ferrous Sulfate 325 mg PO DAILY 12/05/23 Magnesium Oxide [Magnesium] 400 mg PO DAILY 12/05/23 Ondansetron Odt [Zofran Odt] 4 mg TL Q8H PRN 12/05/23 Potassium Citrate [Potassium] 4 tab PO DAILY 12/05/23 Vitamin B Complex 1 each PO DAILY 12/05/23 Zolpidem [Ambien] 5 mg PO HS 12/05/23 cloNIDine [Catapres] 0.1 mg PO DAILY 12/05/23 clonazePAM [Klonopin] 0.5 mg PO DAILY 12/05/23 traMADol [Ultram] 50 mg PO DAILY 12/05/23 Active Medications Scopolamine HBr (Scopolamine Patch) 1 patch TOP Q3D JOSEFINA Last Admin: 12/17/23 09:04 Dose: 1 patch Albuterol Sulf [Ventolin Hfa Inhaler] 1 - 2 puffs INH Q4HR PRN 12/05/23 Anastrozole 1 mg PO DAILY 12/05/23 Ascorbate Calcium/Bioflavonoid [Tere-C 500 mg Tablet] 2 each PO DAILY 12/05/23 Aspirin [Aspirin EC] 81 mg PO DAILY 12/05/23 Baclofen 5 mg PO DAILY PRN 12/05/23 Biotin 10,000 mcg PO DAILY 12/05/23 Budesonide/Formoterol Fumarate [Symbicort 160-4.5 Mcg Inhaler] 2 puffs IH BID 12/05/23 Calcium Citrate/Vitamin D3 [Calcium Cit 315-Vit D3 250 Cpt] 2 each PO DAILY 12/05/23 Cholecalciferol [Vitamin D3] 5,000 unit PO DAILY 12/05/23 Ferrous Sulfate 325 mg PO DAILY 12/05/23 Magnesium Oxide [Magnesium] 400 mg PO DAILY 12/05/23 Ondansetron Odt [Zofran Odt] 4 mg TL Q8H PRN 12/05/23 Potassium Citrate [Potassium] 4 tab PO DAILY 12/05/23 Vitamin B Complex 1 each PO DAILY 12/05/23 Zolpidem [Ambien] 5 mg PO HS 12/05/23 cloNIDine [Catapres] 0.1 mg PO DAILY 12/05/23 clonazePAM [Klonopin] 0.5 mg PO DAILY 12/05/23 traMADol [Ultram] 50 mg PO DAILY 12/05/23 Allergies/Adverse Reactions: Allergies Allergy/AdvReac Type Severity Reaction Status Date / Time bupropion [From Wellbutrin] Allergy Unknown Verified 12/17/23 08:53 codeine Allergy Nausea Verified 12/17/23 08:53 hydrocodone [From Vicodin] Allergy Nausea Verified 12/17/23 08:53 oxycodone [From OxyContin] Allergy Nausea Verified 12/17/23 08:53 sulfite Allergy Unknown Verified 12/17/23 08:53 artificial sweetner Allergy Unknown Uncoded 12/17/23 08:53 Anes History & Medical History - Anesthetic History Anesthesia Complications: reports: Post-Operative Nausea/Vomiting, Emergence delirium - Medical History Cardiovascular: reports: Hypertension Pulmonary: reports: Asthma, COPD, Sleep apnea (does not use cpap) Gastrointestinal: reports: GERD, Other Urinary: reports: Kidney stones Musculoskeletal: reports: Osteoarthritis, Osteopenia, Scoliosis Endocrine/Autoimmune: reports: Type 2 diabetes Skin: reports: Rosacea Smoking Status: Former smoker Psychosocial: reports: No issues indicated History of Cancer?: Yes (breast cancer, s/p radiation) - Surgical History General: reports: Colonoscopy, EGD Eyes Ears Nose Throat (EENT): reports: Tonsil/Adenoidectomy Urologic: reports: Ureterolithotomy (stones) Gynecologic: reports: Hysterectomy, Mastectomy, Other Orthopedic: reports: Carpal Tunnel surgery Exam General: Alert, Oriented x3, Cooperative, No acute distress Dental: Dentures full Upper, Dentures full Lower Mouth Openin Fingerbreadth Neck Mobility: Normal Mallampati classification: II Thyromental Distance: 4-6 cm Mental/Cognitive Status: Alert/Oriented X3, Normal for patient Plan Anesthesia Type: General Consent for Procedure(s) Verified and Reviewed: Yes Code Status: Attempt Resuscitation ASA classification: 3-Severe systemic disease Is this case an emergency?: No
[2023-12-17] MEDS ORDERED: MORPHINE 2 MG/ML CARPUJECT IVP PRN (10:04)
[2023-12-17] MEDS ORDERED: ATROPINE ABBOJECT 1 MG/10 ML SYRINGE IVP PRN (10:04)
[2023-12-17] MEDS ORDERED: fentaNYL 100 MCG/2 ML VIAL IVP PRN (10:04)
[2023-12-17] MEDS ORDERED: HYDROmorphone 0.5 MG/0.5 ML SYRINGE IVP PRN (10:04)
[2023-12-17] MEDS ORDERED: ONDANSETRON 4 MG/2 ML VIAL IVP PRN ×2 (10:04→10:55)
[2023-12-17] MEDS ORDERED: NALOXONE 0.4 MG/ML VIAL IVP PRN (10:04)
[2023-12-17] MEDS ORDERED: LIDOCAINE 2% URO-JET 5 ML SYRINGE UR ONE (10:08)
[2023-12-17] MEDS ORDERED: DEXAMETHASONE 4 MG/ML VIAL ONE (10:32)
[2023-12-17] MEDS ORDERED: ONDANSETRON 4 MG/2 ML VIAL ONE (10:32)
[2023-12-17] MEDS ORDERED: LACTATED RINGERS 1,000 ML IV SCH (11:00)
--- NOTE | 2023-12-17 11:00 | Discharge Plan ---
Discharge Plan Problem Reviewed?: Yes Disposition: Home, Self Care Condition: Good Prescriptions: Docusate Sodium 100Mg Capsule [Colace 100Mg Capsule] 100 mg PO DAILY #7 cap Ondansetron HCl 4 mg PO Q6H PRN #8 tablet PRN Reason: Nausea / Vomiting traMADol [Ultram] 50 mg PO ONCE PRN #10 tablet PRN Reason: Pain >8 Diet: Regular Activity Restrictions: No Restrictions Shower Restrictions: No Driving Restrictions: No Instruction Topics: Lithotripsy Shock Wave, Cystoscopy Additional Instructions or Follow Up instructions: You will be contacted for followup in about [address] Cowan, An x- ray has been ordered for you to obtain before this. Please obtain this after the day of your appointment or a few days before hand. You can get this x-ray by presenting to [facility] bowling or skating front desk clerk and they will direct you to the imaging department. This x-ray has been ordered for you No Smoking: If you smoke, Please STOP! Call for help. Follow-up with: Paco Cowan MD [Provider Admit Priv/Credential] -
--- NOTE | 2023-12-17 11:14 | OPERATIVE REPORT ---
Operative Report - General Procedure Date: 12/17/23 Planned Procedure: Cystoscopy, left extracorporeal shock wave lithotripsy Pre-Op Diagnosis: Left renal stone, family history of bladder cancer Procedure Performed: Cystoscopy, left extracorporeal shock wave lithotripsy Post Op Diagnosis: Left renal stone, family history of bladder cancer - Procedure Note Primary Surgeon: Chapo Anesthesia Provider: STEFFI Holt Anesthesia Technique: General LMA Pathology: none Indications: Left 4mm lower pole stone Findings: Left lower pole 4mm stone, minimal dissolution Normal cystoscopy Complications: None - Other Other Information/Narrative: After informed consent was obtained the patient was brought to the OR and laid in the supine position. The patient was anesthetized per anesthesia protocols and then prepped and draped in usual sterile fashion in the frog leg position. A formal timeout was performed reconfirming the patient, procedure and laterality. An extracorporeal shockwave lithotripsy Dornier lithotripter device was placed with the pad against the patient's left flank. Manager Hi imaging was performed to isolate and identify the stone. She had a 4mm left lower pole stone. The lithotripter was then started at a rate of 1 Hz. A total of 1000 shocks were performed. Periodic Spot imaging was used to reconfirm positioning and to monitor this stone. By the end of the case the stone had mild dissolution. We elected not to perform significant we elected not to continue with the shocks as the stone was small and with her body habitus I think that this would have a low chance of significantly more dissolution During this procedure a flexible cystoscopy was performed. She had normal urethra, normal bladder mucosa. Ureteral orifices were orthotopic in nature. There were no masses or lesions or other concerns. A Uro-Jet was placed This concluded the procedure and the patient was reversed from anesthesia and brought to the PACU without further incident. She will follow-up in 4-6 weeks time with an x-ray.
[2023-12-17 11:58] VITALS: BP 144/66; O2SAT 100
--- NOTE | 2023-12-17 12:16 | ANESTHESIA POST OP EVALUATION ---
Anesthesia Post Eval - Post Anesthesia Eval Vitals: Last Vital Signs Temp 36.4 C L 12/17/23 11:46 Pulse 75 12/17/23 11:46 Resp 16 12/17/23 11:46 BP 144/66 H 12/17/23 11:46 Pulse Ox 100 12/17/23 11:46 O2 Flow Rate CV Function Including HR & BP: Stable Pain Control: Satisfactory Nausea & Vomiting: Negative Mental Status: Baseline Respiratory Status: Airway Patent Hydration Status: Satisfactory Anesthesia Complications: None
== END 2023-12-17 08:24 | disposition home or self-care (01) ==
LOC: SDS 08:23 → MERGE 08:23 → SDS 08:24
PROVIDERS: ATTEND Urology
DX: N20.0 Calculus of kidney (principal); E66.01 Morbid (severe) obesity due to excess calories; I10 Essential (primary) hypertension; J44.9 Chronic obstructive pulmonary disease, unspecified; G47.30 Sleep apnea, unspecified; E11.9 Type 2 diabetes mellitus without complications; Z68.42 Body mass index [BMI] 45.0-49.9, adult; Z80.52 Family history of malignant neoplasm of bladder; Z87.891 Personal history of nicotine dependence
CPT/HCPCS: 50590; J3490; J7120

== ENCOUNTER 2024-01-23 12:59 | Outpatient (CLI) | payer MEDICARE, MEDICAID ==
--- NOTE | 2024-01-23 19:23 | XRAY Report ---
PROCEDURE: Abdomen 1 V INDICATIONS: HX OF KIDNEY STONES TECHNIQUE: One view of the abdomen acquired. COMPARISON: None. FINDINGS: Surgical changes and devices: None. Bowel: Bowel gas pattern is normal. Soft tissues: There is a 4 mm left lower pole renal stone. Kidneys are somewhat obscured by bowel gas and fecal contents, right kidney greater than left. Visualized solid organ contours appear normal in size. Bones: No suspicious bony lesions. IMPRESSION: Small left renal stone. Reviewed by: Alok Owens MD on 01/23/2024 7:21 PM PDT Approved by: Alok Owens MD on 01/23/2024 7:21 PM PDT Station ID: [id number]
== END 2024-01-23 13:00 | disposition home or self-care (01) ==
LOC: DI.S 12:59
PROVIDERS: ATTEND Urology
DX: N20.0 Calculus of kidney (principal)